=== PATIENT | female | born 1955 | race Caucasian/White ===

== ENCOUNTER 2016-02-25 16:28 | Emergency (ER) | payer MEDICARE ==
[2015-08-04 13:46] VITALS: BMI 28.3
[~2016-02-25 16:28] MED LIST: AMBIEN10 MG PO; ATIVAN1 MG PO; FLAGYL500 MG PO; GLUCOPHAGE500 MG PO; LEVAQUIN500 MG PO
== END 2016-02-25 18:01 | disposition home or self-care (01) ==
LOC: D.ER 16:28
DX: R10.9 Unspecified abdominal pain (principal)

== ENCOUNTER 2016-11-01 19:42 | Emergency (ER) | payer MEDICARE ==
[2015-08-04 13:46] VITALS: BMI 28.3
[2016-11-01 20:18] LABS: BASOPHILS 0.3 % (0-2); HEMATOCRIT 40.3 % (36.0-48.0); HEMOGLOBIN 13.7 g/dL (12-16); IMMATURE GRANULOCYTES 0.4 % (0-5); LYMPHOCYTES 32.9 % (15-50); MCH 31.9 pg (26.0-34.0); MCV 93.7 fL (80.0-100.0); MEAN PLATELET VOLUME 9.1 fL (7.4-10.4); MONOCYTES 7.1 % (2-11); NEUTROPHILS 56.3 % (40-80); PLATELET COUNT 175 10x3/uL (130-400); RDW 13.9 % (11.5-14.5); WBC 7.4 10x3/uL (4.8-10.8)
[2016-11-01 20:43] LABS: ALBUMIN 3.6 g/dL (3.4-5.0); ALKALINE PHOSPHATASE 97 U/L (46-116); ALT (SGPT) 36 U/L (10-68); BILIRUBIN - TOTAL 0.23 mg/dL (0.2-1.3); CALC OSMOLALITY 282 mosm/kg (275-300); CALCIUM 8.4 mg/dL (8.5-10.1); CARBON DIOXIDE 22.6 mmol/L (21.0-32.0); CHLORIDE - SERUM 106 mmol/L (98-107); CREATININE - SERUM 1.2 mg/dL (0.6-1.3); GLUCOSE 175 mg/dL (74-106); POTASSIUM - SERUM 4.4 mmol/L (3.5-5.1); PROTEIN - SERUM 7.8 g/dL (6.4-8.2); SODIUM 138 mmol/L (136-145); UREA NITROGEN 20 mg/dL (7-18); eGFR NON AFRICAN AMERICAN 49 mL/min (90-120)
[2016-11-01 20:58] LABS: CHOL - HDL RATIO 3.4 ratio (2.3-4.1); CHOLESTEROL, TOTAL 185 mg/dL (0-200); CKMB 1.2 U/L (0.0-3.6); CREATINE KINASE 120 UL (21-215); HDL CHOLESTEROL 54 mg/dL (32-96); LDL CHOLESTEROL 81 mg/dL (0-100); LDL-HDL RATIO 1.5 ratio (1.5-3.5); PRO BNP 58 pg/mL (0-125); TRIGLYCERIDE 253 mg/dL (30-200); TROPONIN-I < 0.017 ng/mL (0.000-0.060)
== END 2016-11-01 21:56 | disposition home or self-care (01) ==
LOC: D.ER 19:42
PROVIDERS: Emergency Medicine
DX: R07.89 Other chest pain (principal); E11.9 Type 2 diabetes mellitus without complications; I10 Essential (primary) hypertension